=== PATIENT | female | born 1995 | race Caucasian/White ===

== ENCOUNTER 2017-05-25 18:26 | Emergency (ER) | payer SELFPAY ==
--- NOTE | 2017-05-25 18:51 | EDM.PDOC ---
ED HPI GENERAL MEDICAL PROBLEM - General Chief Complaint: General Stated Complaint: tooth pain Time Seen by Provider: 05/25/17 18:48 Source of Information: Reports: Patient History Limitations: Reports: No Limitations - History of Present Illness INITIAL COMMENTS - FREE TEXT/NARRATIVE: 2 day history of gradually worsening pain left lower wisdom tooth. No fevers/ chills. No other complaints. Trying to get into an appointment to see dentist. tooth pain Pain Score (Numeric/FACES): 7 - Related Data Allergies Allergy/AdvReac Type Severity Reaction Status Date / Time peacons Allergy throat Uncoded 05/25/17 18:51 swelling Home Meds: Home Meds . [No Known Home Meds] 05/25/17 [History] Past Medical History HEENT History: Reports: Other (See Below) (previous tooth pain.) Social & Family History - Family History Family Medical History: Noncontributory - Tobacco Use Smoking Status *Q: Current Every Day Smoker - Alcohol Use Alcohol Use History: Yes Days Per Week of Alcohol Use Comment: Has ETOH on weekends - Recreational Drug Use Recreational Drug Use: No Drug Use in Last 12 Months: No ED ROS GENERAL - Review of Systems Review Of Systems: See Below Constitutional: Reports: No Symptoms HEENT: Reports: Dental Pain. Denies: Ear Discharge, Ear Pain, Eye Discharge, Eye Pain, Nose Pain, Rhinitis, Sinus Problem, Throat Pain, Throat Swelling, Vertigo, Vision Change Respiratory: Reports: No Symptoms Cardiovascular: Reports: No Symptoms GI/Abdominal: Reports: No Symptoms : Reports: No Symptoms Musculoskeletal: Reports: No Symptoms Skin: Reports: No Symptoms Neurological: Reports: No Symptoms Psychiatric: Reports: No Symptoms ED EXAM, GENERAL - Physical Exam Exam: See Below Exam Limited By: No Limitations General Appearance: Alert, WD/WN, No Apparent Distress Eye Exam: Bilateral Eye: EOMI, PERRL Ears: Normal External Exam, Normal Canal, Hearing Grossly Normal, Normal TMs Nose: Normal Inspection Throat/Mouth: Normal Lips, Normal Gums, Normal Oropharynx, Normal Voice, No Airway Compromise, Other (Bottom left wisdom tooth is partially errupted. Some tenderness around surrounding gum tissue, no obvious abscess or drainage. ) Head: Atraumatic, Normocephalic, Facial Tenderness (over left lower jaw). No: Facial Swelling Neck: Normal Inspection, Supple, Non-Tender, Full Range of Motion. No: Lymphadenopathy (L), Lymphadenopathy (R) Respiratory/Chest: No Respiratory Distress, Lungs Clear, No Accessory Muscle Use Cardiovascular: Regular Rate, Rhythm, No Murmur GI/Abdominal: Soft, Non-Tender (Female) Exam: Deferred Rectal (Female) Exam: Deferred Back Exam: Normal Inspection Extremities: Normal Inspection, Normal Capillary Refill Neurological: Alert, Oriented, Normal Cognition, Normal Gait Psychiatric: Normal Affect, Normal Mood Skin Exam: Warm, Dry, Intact, Normal Color Course - Re-Assessments/Exams Free Text/Narrative Re-Assessment/Exam: 05/25/17 19:19 Irritated tissue around left lower wisdom tooth. No obvious dental carries. May have early gum infection. Will cover with Keflex. PRN T#3 for pain. Given medication from ER cabinet. To call and try to arrange appointment with local dentist this week. Info given for urgent care dental clinic in [place]. Departure - Departure Time of Disposition: 18:48 Disposition: Home, Self-Care 01 Condition: Good Clinical Impression: Tooth ache - Discharge Information Instructions: Cephalexin tablets or capsules, Acetaminophen; Codeine tablets Referrals: PCP,None [Primary Care Provider] - Forms: ED Department Discharge Additional Instructions: Take the antibiotic you received 4 times a day for three days. Take the Tylenol #3 one tablet every 4-6 hours. OK to take Aleve or Ibuprofen too. Call and arrange follow up appointment this week with dentist. Follow up otherwise as needed if you have worsening problems.
== END 2017-05-25 19:05 | disposition home or self-care (01) ==
LOC: LL.ED 18:26
DX: K08.89 Other specified disorders of teeth and supporting structures (principal); F17.210 Nicotine dependence, cigarettes, uncomplicated; Z91.018 Allergy to other foods
CPT/HCPCS: 99282; 99283